=== PATIENT | male | born 1955 | race Asian ===

== ENCOUNTER 2018-01-31 12:53 | Inpatient (IN) | payer BC, OTHER ==
[~2018-01-31] VITALS: Ht 167.6 cm; Wt 71.2 kg
[2018-01-31] MEDS ORDERED: ACETAMINOPHEN 500 MG TABLET PO ONE (13:15)
[2018-01-31 13:26] LABS: BASOPHILS % (AUTO) 0.7 % (0.0-2.0); EOSINOPHILS % (AUTO) 2.1 % (1.0-6.0); HEMATOCRIT 45.3 % (41-53); HEMOGLOBIN 15.5 g/dL (13.5-17.5); LYMPHOCYTES # (AUTO) 1.7 K/uL (1.0-4.8); LYMPHOCYTES % (AUTO) 33.4 % (22.0-44.0); MEAN CORPUSCULAR HEMOGLOBIN 31.1 pg (26.0-34.0); MEAN CORPUSCULAR HGB CONC 34.3 G/dL (31.0-37.0); MEAN CORPUSCULAR VOLUME 91 fL (80-100); MONOCYTES # (AUTO) 0.3 K/uL (0.1-1.0); MONOCYTES % (AUTO) 6.2 % (2.0-9.0); NEUTROPHILS # (AUTO) 2.9 K/uL (1.8-7.7); NEUTROPHILS % (AUTO) 57.6 % (40.0-70.0); PLATELET COUNT (AUTO) 205 K/uL (150-450); RED CELL DISTRIBUTION WIDTH 13.3 % (11.5-14.5)
[2018-01-31 13:40] LABS: CALCIUM, TOTAL 8.8 mg/dL (8.8-10.5); CREATININE 1.42 mg/dL (0.60-1.30); POTASSIUM 3.5 mmol/L (3.5-5.1)
[2018-01-31 13:45] LABS: ALBUMIN 3.8 g/dL (3.4-5.0); BILIRUBIN,TOTAL 0.7 mg/dL (0.1-1.0); TOTAL PROTEIN, SERUM 8.3 g/dL (6.4-8.2)
[2018-01-31] MEDS ORDERED: ONDANSETRON HCL 4 MG/2 ML VIAL IVP PRN ×2 (14:45→16:30)
[2018-01-31] MEDS ORDERED: HydrALAZINE HCL 20 MG/ML VIAL IVP ONE (14:45)
[2018-01-31] MEDS ORDERED: ASPIRIN 81 MG CHEWABLE TABLET PO ONE (14:45)
[2018-01-31] MEDS ORDERED: ACETAMINOPHEN 325 MG TABLET PO PRN (14:45)
[2018-01-31 15:12] LABS: APPEARANCE,URINE CLEAR (CLEAR); BILIRUBIN,URINE NEGATIVE (NEGATIVE); GLUCOSE, URINE (UA) NEGATIVE (NEGATIVE); KETONES,URINE NEGATIVE (NEGATIVE); LEUKOCYTE ESTERASE ,URINE NEGATIVE (NEGATIVE); NITRATE,URINE NEGATIVE (NEGATIVE); OCCULT BLOOD,URINE NEGATIVE (NEGATIVE); PROTEIN,URINE SEE CONFIRM (NEGATIVE); UROBILINOGEN,URINE 0.2 mg/dL (<=1.0)
[2018-01-31] MEDS ORDERED: CloNIDine HCL 0.1 MG TABLET PO PRN (15:30)
[2018-01-31] MEDS ORDERED: BISACODYL 10 MG RECTAL RECTAL SUPPOSITORY PR PRN (16:30)
[2018-01-31] MEDS ORDERED: IPRATROPIUM BROMIDE 0.5 MG/2.5 ML NEB SOLUTION NEB PRN (16:30)
[2018-01-31] MEDS ORDERED: ZOLPIDEM TARTRATE 5 MG TABLET PO PRN (16:30)
[2018-01-31] MEDS ORDERED: MAGNESIUM HYDROXIDE SUSPENSION 30 ML UDCUP PO PRN (16:30)
[2018-01-31] MEDS ORDERED: ALBUTEROL SULFATE 2.5 MG/0.5 ML NEB SOLUTION NEB PRN (16:30)
[2018-01-31 16:31] LABS: SULFOSALICYLIC ACID,URINE 3+ (Negative)
[2018-01-31 16:32] LABS: BACTERIA,URINE Few /HPF (None Seen); RBC,URINE None Seen /HPF (0-2); WBC,URINE 0-2 /HPF (0-5)
[2018-01-31 16:33] LABS: MUCUS,URINE Few LPF (None Seen); SQUAMOUS EPITHELIAL CELL,UR Rare /LPF (None Seen)
[2018-01-31] MEDS: NICARDipine 20 MG/DEXT,ISO-OSM 200 ML IV PRN ×2 (18:30→21:56)
[2018-01-31] MEDS: AmLODIPine BESYLATE 5 MG TABLET PO SCH (18:32)
[2018-01-31 20:00] VITALS: BP 180/104
[2018-01-31 20:15] VITALS: BP 156/86
[2018-01-31] MEDS: METOPROLOL TARTRATE 25 MG TABLET PO SCH (20:49)
[2018-01-31] MEDS: HEPARIN SODIUM,PORCINE 5,000 UNITS/ML VIAL SQ SCH (20:50)
[2018-02-01] VITALS: BP 122/79
[2018-02-01 04:00] VITALS: BP 136/87
[2018-02-01 05:21] LABS: BASOPHILS % (AUTO) 0.6 % (0.0-2.0); EOSINOPHILS % (AUTO) 2.2 % (1.0-6.0); HEMATOCRIT 44.4 % (41-53); HEMOGLOBIN 15.5 g/dL (13.5-17.5); LYMPHOCYTES # (AUTO) 1.9 K/uL (1.0-4.8); LYMPHOCYTES % (AUTO) 27.7 % (22.0-44.0); MEAN CORPUSCULAR HEMOGLOBIN 31.2 pg (26.0-34.0); MEAN CORPUSCULAR VOLUME 89 fL (80-100); MONOCYTES # (AUTO) 0.5 K/uL (0.1-1.0); MONOCYTES % (AUTO) 7.4 % (2.0-9.0); NEUTROPHILS # (AUTO) 4.3 K/uL (1.8-7.7); NEUTROPHILS % (AUTO) 62.1 % (40.0-70.0); PLATELET COUNT (AUTO) 215 K/uL (150-450); RED BLOOD CELL COUNT(AUTO) 4.97 MIL/uL (4.50-5.90); RED CELL DISTRIBUTION WIDTH 13.4 % (11.5-14.5)
[2018-02-01 05:35] LABS: HEMOGLOBIN A1C 5.4 % (4.5-6.2)
[2018-02-01 06:00] LABS: ANION GAP 8 mmol/L (8-16); CALCIUM, TOTAL 8.7 mg/dL (8.8-10.5); CARBON DIOXIDE 31 mmol/L (22-29); CHLORIDE 103 mmol/L (98-107); CHOL/HDL RATIO 4.6 (4.2-7.3); CHOLESTEROL 210 mg/dL (131-200); CREATINE KINASE, TOTAL ONLY 156 U/L (39-308); CREATININE 1.19 mg/dL (0.60-1.30); GLOMERULAR FILTR. RATE CALC > 60 mL/min (>60); GLUCOSE,RANDOM 93 mg/dL (70-110); HDL CHOLESTEROL 46 mg/dL (40-60); LDL CHOL (CALC.) 138 mg/dL (0-130); POTASSIUM 3.3 mmol/L (3.5-5.1); SODIUM SERUM 142 mmol/L (136-145); THYROID STIMULATING HORMONE 2.23 uIU/mL (0.36-3.74); TRIGLYCERIDES 130 mg/dL (15-150); UREA NITROGEN, BLOOD 9 mg/dL (7-18)
[2018-02-01 07:50] LABS: URIC ACID 7.1 mg/dL (2.6-7.2)
[2018-02-01 08:00] VITALS: BP 178/118
[2018-02-01] MEDS ORDERED: POTASSIUM CHL 10 MEQ/WATER 50 ML IV PRN ×2 (09:00)
[2018-02-01] MEDS ORDERED: ASPIRIN 81 MG CHEWABLE TABLET PO SCH (09:00)
[2018-02-01] MEDS ORDERED: LABETALOL HCL 5 MG/ML 20 ML VIAL IVP PRN (09:00)
[2018-02-01] MEDS ORDERED: POTASSIUM CHLORIDE 20 MEQ ER TABLET PO PRN ×2 (09:00)
[2018-02-01] MEDS: AmLODIPine BESYLATE 5 MG TABLET PO SCH (09:17)
[2018-02-01] MEDS: PANTOPRAZOLE SODIUM 40 MG/VIAL IVP SCH (09:17)
[2018-02-01] MEDS: SIMVASTATIN 20 MG TABLET PO SCH (09:17)
[2018-02-01] MEDS: METOPROLOL TARTRATE 25 MG TABLET PO SCH (09:18)
[2018-02-01] MEDS: ASPIRIN 81 MG CHEWABLE TABLET PO SCH (09:18)
[2018-02-01] MEDS: HEPARIN SODIUM,PORCINE 5,000 UNITS/ML VIAL SQ SCH ×2 (09:18→22:10)
[2018-02-01] MEDS ORDERED: AmLODIPine BESYLATE 5 MG TABLET PO ONE (10:15)
[2018-02-01] MEDS: HydrALAZINE HCL 20 MG/ML VIAL IVP PRN ×2 (10:31→15:28)
[2018-02-01 12:00] VITALS: BP 163/99
[2018-02-01 16:00] VITALS: BP 165/109
[2018-02-01] MEDS ORDERED: LABETALOL HCL 5 MG/ML 20 ML VIAL IVP ONE (17:45)
[2018-02-01 20:00] VITALS: BP 145/55
[2018-02-01] MEDS: LOSARTAN POTASSIUM 25 MG TABLET PO SCH (22:10)
[2018-02-01] MEDS: METOPROLOL TARTRATE 50 MG TABLET PO SCH (22:10)
[2018-02-02] VITALS: BP 136/97
[2018-02-02 04:00] VITALS: BP 143/84
[2018-02-02 04:54] LABS: BASOPHILS % (AUTO) 0.7 % (0.0-2.0); EOSINOPHILS % (AUTO) 2.7 % (1.0-6.0); HEMATOCRIT 45.9 % (41-53); HEMOGLOBIN 15.8 g/dL (13.5-17.5); LYMPHOCYTES # (AUTO) 1.9 K/uL (1.0-4.8); LYMPHOCYTES % (AUTO) 25.7 % (22.0-44.0); MEAN CORPUSCULAR HEMOGLOBIN 30.7 pg (26.0-34.0); MEAN CORPUSCULAR HGB CONC 34.5 G/dL (31.0-37.0); MEAN CORPUSCULAR VOLUME 89 fL (80-100); MONOCYTES # (AUTO) 0.5 K/uL (0.1-1.0); MONOCYTES % (AUTO) 7.1 % (2.0-9.0); NEUTROPHILS # (AUTO) 4.7 K/uL (1.8-7.7); NEUTROPHILS % (AUTO) 63.8 % (40.0-70.0); PLATELET COUNT (AUTO) 221 K/uL (150-450); RED BLOOD CELL COUNT(AUTO) 5.14 MIL/uL (4.50-5.90); RED CELL DISTRIBUTION WIDTH 13.3 % (11.5-14.5)
[2018-02-02 05:03] LABS: ANION GAP 8 mmol/L (8-16); CARBON DIOXIDE 29 mmol/L (22-29); CHLORIDE 102 mmol/L (98-107); CREATININE 1.19 mg/dL (0.60-1.30); GLOMERULAR FILTR. RATE CALC > 60 mL/min (>60); GLUCOSE,RANDOM 99 mg/dL (70-110); POTASSIUM 4.1 mmol/L (3.5-5.1); SODIUM SERUM 139 mmol/L (136-145); UREA NITROGEN, BLOOD 12 mg/dL (7-18)
[2018-02-02 08:00] VITALS: BP 154/97
[2018-02-02] MEDS: PANTOPRAZOLE SODIUM 40 MG/VIAL IVP SCH (08:36)
[2018-02-02] MEDS: HEPARIN SODIUM,PORCINE 5,000 UNITS/ML VIAL SQ SCH (08:36)
[2018-02-02] MEDS: ASPIRIN 81 MG CHEWABLE TABLET PO SCH (08:36)
[2018-02-02] MEDS: SIMVASTATIN 20 MG TABLET PO SCH (08:37)
[2018-02-02] MEDS: LOSARTAN POTASSIUM 25 MG TABLET PO SCH (08:37)
[2018-02-02] MEDS: METOPROLOL TARTRATE 50 MG TABLET PO SCH (08:37)
[2018-02-02] MEDS ORDERED: AmLODIPine BESYLATE 10 MG TABLET PO SCH (09:00)
[2018-02-02 12:00] VITALS: BP 164/95
== END 2018-02-02 13:40 | DRG 304 ==
LOC: EMS 12:53 → 5N 17:48 → ICU 19:26
PROVIDERS: ADMIT Internal Medicine Geriatric Medicine; ATTEND Internal Medicine Geriatric Medicine
DX: I16.1 Hypertensive emergency (principal); I63.9 Cerebral infarction, unspecified; N17.9 Acute kidney failure, unspecified; M10.9 Gout, unspecified; E87.6 Hypokalemia; E78.5 Hyperlipidemia, unspecified; I10 Essential (primary) hypertension; M47.816 Spondylosis without myelopathy or radiculopathy, lumbar region; M77.9 Enthesopathy, unspecified; R29.810 Facial weakness; R53.1 Weakness; R26.9 Unspecified abnormalities of gait and mobility; R80.9 Proteinuria, unspecified; G43.909 Migraine, unspecified, not intractable, without status migrainosus; Z82.3 Family history of stroke; Z82.49 Family history of ischemic heart disease and other diseases of the circulatory system; Z28.21 Immunization not carried out because of patient refusal; Z86.73 Personal history of transient ischemic attack (TIA), and cerebral infarction without residual deficits
CPT/HCPCS: 70450; 70544; 70551; 72148; 76770; 80074; 83036; 83735; 84439; 84443; 84550; 86592; 87081; 92526; 92610; 93005; 93306; 93880; 96374; 97112; 97166; 99285; C9113; J0360; J1644; J3490